=== PATIENT | male | born 1940 | race Caucasian/White ===

== ENCOUNTER 2022-05-13 16:32 | Emergency (ER) | payer OTHER ==
--- NOTE | 2022-05-13 18:48 | RAD REPORT ---
EXAM DESCRIPTION: RAD - Chest Single View - 05/13/2022 6:27 pm CLINICAL HISTORY: COUGH COMPARISON: Chest Pa And Lat (2 Views) dated 02/28/2021 FINDINGS: Lines: None. Lungs: Increased coarsened pulmonary interstitium which is widespread bilaterally. Pleural: No significant pleural effusions or pneumothorax. Cardiac: The heart size is within normal limits. Mediastinum: Within normal limits. Bones: No acute fractures. Other: None IMPRESSION: Coarsening of the interstitium with irregular bilateral airspace disease concerning for multifocal pneumonia.
[2022-05-13 19:46] LABS: SARS-COV-2 RT PCR NEGATIVE (NEGATIVE)
[2022-05-13 19:46] LABS: Absolute Lymphocytes (CBC) 1.6 K/uL (0.7-4.9); Hematocrit 47.1 % (39.6-49.0); Lymphocytes % 12.3 % (15.3-44.8); MCV 91.5 fL (80-100); MPV 9.5 fL (7.6-11.3); RBC Red Blood Cell Count 5.15 M/uL (4.33-5.43)
[2022-05-13 19:47] LABS: Protime INR 1.13
[2022-05-13] MEDS ORDERED: NA CHLORIDE 0.9% 500 ML ONE ×2 (20:02→21:22)
[2022-05-13 20:07] LABS: Albumin 3.6 g/dL (3.4-5.0); Bilirubin Direct 0.2 mg/dL (0-0.2); Bilirubin Total 0.7 mg/dL (0.2-1.0); Magnesium 2.7 mg/dL (1.6-2.4); Potassium 3.6 mmol/L (3.5-5.1); Protein, Total 8.8 g/dL (6.4-8.2)
--- NOTE | 2022-05-13 20:58 | RAD REPORT ---
EXAM DESCRIPTION: CT - Head Brain Wo Cont - 05/13/2022 8:37 pm CLINICAL HISTORY: weakness COMPARISON: No comparisons TECHNIQUE: All CT scans are performed using dose optimization technique as appropriate and may inclu de automated exposure control or mA/KV adjustment according to patient size. FINDINGS: No intracranial hemorrhage, hydrocephalus or extra-axial fluid collection.No areas of brai n edema or evidence of midline shift. Age advanced cerebral atrophy. Remote left parietooccipital lob e infarct. The paranasal sinuses and mastoids are clear. The calvarium is intact. IMPRESSION: No acute intracranial abnormality. Remote left parietooccipital lobe.
--- NOTE | 2022-05-13 21:20 | RAD REPORT ---
EXAM DESCRIPTION: CTChest Abdomen Pelvis W Cont - 05/13/2022 8:45 pm CLINICAL HISTORY: shortness of breath, weight loss COMPARISON: Chest Single View dated 05/13/2022 TECHNIQUE: CT of the chest, abdomen, and pelvis was performed with IV contrast. All CT scans are performed using dose optimization technique as appropriate and may include automated exposure control or mA/KV adjustment according to patient size. FINDINGS: Thorax: Chest Wall: Subcutaneous emphysema at the base of the neck. Lungs: Background of pulmonary fibrosis. Subpleural reticulation and nodular ground-glass opacities p resent bilaterally. Pleura: Tiny pneumothoraces suspected bilaterally. Alternately, this could represent extrapleural air simulating the pneumothoraces. Naya/Mediastinum: Enlarged subcarinal lymph node measuring 10 millimeters . Pneumomediastinum. Aorta/Pulmonary Arteries: Unremarkable Heart: Normal size. Abdomen/Pelvis: Liver: No acute abnormality or suspicious lesions. Biliary: No biliary ductal dilatation. Stomach: No significant focal abnormality. Duodenum: No significant focal abnormality. Pancreas: Pancreatic atrophy Spleen: No significant abnormality. Adrenal: No suspicious lesions. Kidney/ureter: No hydronephrosis. No renal calculi. Retroperitoneum: No retroperitoneal adenopathy. Vascular: No aneurysm. Atherosclerosis. Bowel: No significant focal abnormality. Peritoneum: No ascites or free air. Bladder: Grossly unremarkable. Reproductive: No adnexal masses. Bones: T2, T8, and L1 compression fractures. The T2 and T8 compression fractures may be pathologic. Other: n/a IMPRESSION: 1. Extensive pneumomediastinum and probably trace bilateral pneumothoraces. Discussed wi C Page by Dr. Renner. The exact source of the of the pneumomediastinum is unclear. It could be second katarzyna to esophageal source. 2. Probably subacute or chronic T2 and T8 compression fractures that may be pathologic. MRI could bet ter assess. 3. Pulmonary fibrosis that may reflect a usual interstitial pneumonia. Subpleural subpleural ground-g lass opacities and nodularity could reflect exacerbation or may be chronic. Follow up imaging could b e obtained to reassess.
[2022-05-13] MEDS ORDERED: VANCOMYCIN 1 GM/VIAL ONE (21:21)
[2022-05-13] MEDS ORDERED: CEFTRIAXONE 1000 MG/VIAL ONE (21:22)
[2022-05-13] MEDS ORDERED: NA CHLORIDE 0.9% 100 ML IV ONE ×2 (21:22→21:41)
[2022-05-13] MEDS ORDERED: PIPERACIL/TAZO 3.375 GM VIAL IV ONE (21:22)
[2022-05-13] MEDS ORDERED: NA CHLORIDE 0.9% 50 ML IV ONE (21:22)
[2022-05-13] MEDS ORDERED: AZITHROMYCIN 500 MG INJ IVPB ONE (21:22)
[2022-05-13] MEDS ORDERED: NA CHLORIDE 0.9% 1,000 ML ONE (21:23)
--- NOTE | 2022-05-13 21:41 | EDPHYS ---
Physician Documentation [facility] Name: Gonzalo Burgess Age: 81 yrs Sex: Male : 1940 Arrival Date: 05/13/2022 Time: 16:50 Bed 2 Private MD: ED Physician Chris Mcfarlane HPI: 05/13 17:35 This 81 yrs old Male presents to ER via Wheelchair with complaints of General Weakness. cp 17:35 The patient's problem is reported as weakness, that is generalized. Onset: The cp symptoms/episode began/occurred 3 week(s) ago. Duration: The episode is continuous. Associated signs and symptoms: Pertinent positives: diarrhea, shortness of breath, Pertinent negatives: abdominal pain, chest pain, confusion. Historical: - Allergies: 17:16 No Known Allergies; ld1 - Home Meds: 17:16 cyclobenzaprine 10 mg Oral tab 1 tab once daily [Active]; simvistatin [Active]; ld1 - PMHx: 17:16 Hypertensive disorder; Hypothyroidism; Depressive disorder; ld1 - Immunization history:: Adult Immunizations up to date, Client reports receiving the 2nd dose of the Covid vaccine. - Social history:: Smoking status: Patient denies any tobacco usage or history of. Patient/guardian denies using alcohol. ROS: 17:40 Constitutional: Positive for poor PO intake, Negative for body aches, fever. cp 17:40 Eyes: Negative for injury, pain, redness, and discharge. cp 17:40 ENT: Negative for drainage from ear(s), ear pain, sore throat, difficulty swallowing, difficulty handling secretions. 17:40 Cardiovascular: Negative for chest pain, edema. 17:40 Respiratory: Positive for shortness of breath, at rest. Negative for cough, wheezing. 17:40 Abdomen/GI: Positive for diarrhea, Negative for abdominal pain, vomiting, constipation, black/tarry stool, rectal bleeding. 17:40 : Negative for hematuria, flank pain, burning with urination. 17:40 Skin: Negative for cellulitis, rash. 17:40 Neuro: Positive for weakness, Negative for altered mental status, headache. 17:40 All other systems are negative. Exam: 17:45 Constitutional: The patient appears in no acute distress, alert, awake, cp non-diaphoretic, non-toxic, well developed, frail, uncomfortable. 17:45 Head/Face: Normocephalic, atraumatic. cp 17:45 Eyes: Periorbital structures: appear normal, Pupils: equal, round, and reactive to light and accomodation, Extraocular movements: intact throughout, Conjunctiva: normal, no exudate, no injection, Sclera: no appreciated abnormality, Lids and lashes: appear normal, bilaterally. 17:45 ENT: External ear(s): are unremarkable, Nose: is normal, Mouth: Lips: dry, Oral mucosa: dry, Posterior pharynx: Airway: no evidence of obstruction, patent, swelling, is not appreciated, erythema, is not appreciated, exudate, is not appreciated. 17:45 Neck: ROM/movement: is normal, is supple, without pain, no range of motions limitations, no meningismus. 17:45 Chest/axilla: Inspection: normal, Palpation: is normal, no crepitus, no tenderness. 17:45 Cardiovascular: Rate: tachycardic, Rhythm: regular, Edema: is not appreciated, JVD: is not appreciated. 17:45 Respiratory: the patient does not display signs of respiratory distress, Respirations: shallow respirations, tachypnea, Breath sounds: decreased breath sounds, that are mild, throughout, stridor, is not appreciated, wheezing: is not appreciated. 17:45 Abdomen/GI: Inspection: abdomen appears normal, Bowel sounds: active, all quadrants, Palpation: soft, mild abdominal tenderness, in all quadrants. 17:45 Back: CVA tenderness, is absent. 17:45 Skin: cellulitis, is not appreciated, no rash present. 17:45 Neuro: Orientation: no acute changes, per family, Mentation: able to follow commands, slow to respond, Motor: moves all fours, general weakness with no focal deficits. 19:10 ECG was reviewed by the Attending Physician. cp 21:15 Radiologist reports: no acute intracranial injuries cp Vital Signs: 17:08 BP 83 / 62; Pulse 124; Resp 20; Temp 97.0(A); Pulse Ox 91% on R/A; Weight 41.73 kg; ld1 Height 5 ft. 9 in. (175.26 cm); Pain 0/10; 17:19 BP 97 / 78; Pulse Ox 100% on R/A; ld1 18:50 Pulse 120; Resp 20; ll1 19:11 BP 111 / 76; ll1 21:30 BP 92 / 78; Pulse 118; Resp 13; Pulse Ox 97% on R/A; ll3 22:32 BP 149 / 83; Pulse 115; Resp 13; Pulse Ox 98% on R/A; ll3 05/14 00:09 BP 90 / 59; Pulse 95; Resp 14; Pulse Ox 98% on R/A; ll3 01:40 BP 105 / 66; Pulse 95; Resp 12; Pulse Ox 97% on R/A; ll3 02:52 BP 108 / 69; Pulse 88; Resp 14; Pulse Ox 99% on R/A; ll3 05/13 17:08 Body Mass Index 13.59 (41.73 kg, 175.26 cm) ld1 MDM: 05/13 17:22 Patient medically screened. 20:14 Data reviewed: vital signs, nurses notes, lab test result(s), radiologic studies, plain cp films. ED course: Patient qualifies for Septic Shock. A) source of infection is pneumonia, B) SIRS criteria: HR of 120, WBC of >13, C) lactate 6.3. 23:00 Post IV fluid administration reassessment for Sepsis: Client prescribed 30 mL/kg IVF. Sepsis focused reassessment complete. Current vital signs reviewed: Yes. 05/14 03:00 Physician consultation: was contacted at 00:55, regarding regarding transfer, to [facility]. patient's condition, accepting physician will be DR Smalls. 05/13 17:29 Order name: Basic Metabolic Panel; Complete Time: 20:08 05/13 20:08 Interpretation: Normal except: ANION GAP 18.6; GLUC 175; BUN 28; CRE 1.47; GFR 48. 05/13 17:29 Order name: CBC with Diff; Complete Time: 20:08 05/13 20:08 Interpretation: Normal except: WBC 13.10; PLT 121; RDW 15.4; LYM% 12.3; MN% 18.0; NEUT cp A 9.1; MNA 2.4. 05/13 17:29 Order name: LFT's; Complete Time: 20:08 05/13 21:13 Interpretation: Normal except: TP 8.8; GLOB 5.2; A/G 0.7. 05/13 17:29 Order name: Magnesium; Complete Time: 20:08 05/13 17:29 Order name: NT PRO-BNP; Complete Time: 20:08 05/13 20:09 Interpretation: Abnormal: NT PRO-BNP 1145. 12 17:29 Order name: PT-INR; Complete Time: 20:08 05/13 17:29 Order name: Troponin HS; Complete Time: 20:08 05/13 17:29 Order name: Blood Culture Adult (2) 05/13 17:29 Order name: Urine Microscopic Only; Complete Time: 01:30 05/13 17:29 Order name: Lactate w/ 2H reflex if indic.; Complete Time: 20:08 05/13 20:09 Interpretation: Abnormal: LAC 6.3. 05/13 17:29 Order name: Procalcitonin; Complete Time: 21:13 05/13 21:13 Interpretation: Reviewed. 05/13 17:29 Order name: COVID-19/FLU A+B; Complete Time: 20:08 05/14 00:04 Order name: Lactate Sepsis 2 HR Follow-up; Complete Time: 01:30 EDMS 05/14 00:22 Order name: Urine Dipstick-Ancillary; Complete Time: 01:30 EDMS 05/14 01:49 Interpretation: Normal except: UKET 1+; UBLD 1+; UPROT 2+. 05/13 17:29 Order name: XRAY Chest (1 view); Complete Time: 19:04 05/13 19:05 Interpretation: Report review. 05/13 17:29 Order name: EKG; Complete Time: 17:29 05/13 17:29 Order name: Cardiac monitoring; Complete Time: 18:47 05/13 17:29 Order name: EKG - Nurse/Tech; Complete Time: 18:47 05/13 17:29 Order name: IV Saline Lock; Complete Time: 21:14 05/13 20:13 Order name: CT Head Brain wo Cont; Complete Time: 21:13 05/13 20:13 Order name: CT Chest, Abdomen, Pelvis - W/Contrast; Complete Time: 21:22 05/13 17:29 Order name: Labs collected and sent; Complete Time: 21:14 05/13 17:29 Order name: O2 Per Protocol; Complete Time: 18:26 cp 05/13 17:29 Order name: O2 Sat Monitoring; Complete Time: 18:26 cp 05/13 17:29 Order name: Urine Dipstick-Ancillary (obtain specimen); Complete Time: 00:22 cp 05/13 20:13 Order name: Juan; Complete Time: 22:05 cp EC/12 19:10 Rate is 120 beats/min. Rhythm is regular. MD interval is normal. QRS interval is cp normal. QT interval is normal. Interpreted by me. Reviewed by me. Administered Medications: 20:05 Drug: NS 0.9% 500 ml Route: IV; Rate: bolus; Site: right upper arm; jb4 23:32 Follow up: Response: No adverse reaction; IV Status: Completed infusion; IV Intake: ll3 500ml 21:28 Drug: NS 0.9% (30 ml/kg) 30 ml/kg Route: IV; Rate: bolus; Site: right antecubital; ll3 23:33 Follow up: Response: No adverse reaction; IV Status: Completed infusion; IV Intake: ll3 1250ml 21:36 Drug: Rocephin (cefTRIAXone) 1 grams Route: IV; Rate: calculated rate; Site: right ll3 antecubital; 23:31 Follow up: Response: No adverse reaction; IV Status: Completed infusion; IV Intake: 10qinf0 21:59 Drug: Zithromax (azithromycin) 10 mg/kg Route: IVPB; Rate: calculated rate; Site: right ll3 antecubital; 23:32 Follow up: Response: No adverse reaction; IV Status: Completed infusion; IV Intake: ll3 100ml 22:21 Drug: fentaNYL (PF) 25 mcg Route: IVP; Site: right antecubital; ll3 23:32 Follow up: Response: No adverse reaction ll3 22:30 Drug: Zosyn (piperacillin-tazobactam) 3.375 grams Route: IVPB; Infused Over: 60 mins; ll3 Site: right antecubital; 23:32 Follow up: Response: No adverse reaction; IV Status: Completed infusion; IV Intake: ll3 100ml 23:31 Drug: vancoMYCIN 20 mg/kg Route: IVPB; Site: right antecubital; ll3 23:31 Drug: Ativan (LORazepam) 0.5 mg Route: IVP; Site: right antecubital; ll3 05/14 02:27 Drug: NS 0.9% 1000 ml Route: IV; Rate: 75 ml/hr; Site: right antecubital; ll3 Disposition: 04:47 Co-signature as Attending Physician, Chris Mcfarlane MD. rn Disposition Summary: 05/13/22 21:40 Transfer Ordered Reason: Higher level of care cp Condition: Stable cp Problem: new cp Symptoms: have improved cp Transfer Location: [facility](05/14/22 03:07) cp Accepting Physician: DR Smalls(05/14/22 03:52) ll3 Diagnosis - Severe sepsis with septic shock cp - Pneumomediastinum cp - Pneumonia in diseases classified elsewhere cp Discharge Instructions: - Discharge Summary Sheet ll1 Forms: - Medication Reconciliation Form cp - SBAR form ll1 Critical care time excluding procedures: 03:00 Critical care time: Bedside Care: 5 minutes, Consultation: 25 minutes, Family cp Intervention: 10 minutes. Total time: 40 minutes Signatures: Dispatcher [employer] EDChris Payan MD MD rn Page, Corey, PA PA cp Tono Leavitt RN RN jb4 Maddy Gonzalez RN RN ld1 Svitlana Patel RN RN ll3 Corrections: (The following items were deleted from the chart) 05/13 23:34 21:40 Doctor cp cp 05/14 02:51 05/13 21:40 Other Acute Care Facility cp cp 05/14 02:51 05/13 23:34 Doctor cp cp 05/14 03:07 02:51 DR Lara Bergman cp cp 03:07 02:51 [facility] cp cp 03:52 03:07 DR Smalls cp ll3
--- NOTE | 2022-05-13 21:41 | ER ---
Nurse's Notes [facility] Name: Gonzalo Burgess Age: 81 yrs Sex: Male : 1940 Arrival Date: 05/13/2022 Time: 16:50 Bed 2 Private MD: Diagnosis: Severe sepsis with septic shock;Pneumomediastinum;Pneumonia in diseases classified elsewhere Presentation: 05/13 17:08 Chief complaint: Patient states: Toned out pt home for difficulty breathing. Pt denies ld1 pain. Weakness progressing X 2-3 weeks. Weight loss noted by family over the past 3-4 months. Coronavirus screen: At this time, the client does not indicate any symptoms associated with coronavirus-19. Ebola Screen: No symptoms or risks identified at this time. Initial Sepsis Screen: Does the patient meet any 2 criteria? No. Patient's initial sepsis screen is negative. Does the patient have a suspected source of infection? No. Patient's initial sepsis screen is negative. Risk Assessment: Do you want to hurt yourself or someone else? Patient reports no desire to harm self or others. Onset of symptoms was May 13, 2022. 17:08 Method Of Arrival: Wheelchair ld1 17:08 Acuity: SCOTT 2 ld1 Triage Assessment: 17:16 General: Appears in no apparent distress. uncomfortable, Behavior is calm, cooperative, ld1 appropriate for age. Pain: Denies pain. EENT: No signs and/or symptoms were reported regarding the EENT system. Neuro: Level of Consciousness is awake, alert, obeys commands, Oriented to person, place, time, situation, Appropriate for age. Cardiovascular: Capillary refill < 3 seconds Patient's skin is warm and dry. Respiratory: Airway is patent Respiratory effort is even, unlabored. GI: Abdomen is flat, non-distended. : No signs and/or symptoms were reported regarding the genitourinary system. Derm: No signs and/or symptoms reported regarding the dermatologic system. Musculoskeletal: No signs and/or symptoms reported regarding the musculoskeletal system. Historical: - Allergies: 17:16 No Known Allergies; ld1 - Home Meds: 17:16 cyclobenzaprine 10 mg Oral tab 1 tab once daily [Active]; simvistatin [Active]; ld1 - PMHx: 17:16 Hypertensive disorder; Hypothyroidism; Depressive disorder; ld1 - Immunization history:: Adult Immunizations up to date, Client reports receiving the 2nd dose of the Covid vaccine. - Social history:: Smoking status: Patient denies any tobacco usage or history of. Patient/guardian denies using alcohol. Screenin:57 Abuse screen: Denies threats or abuse. Nutritional screening: Had unintentional weight ll1 loss of 10 pounds or more. Intervention for positive screen: ED Physician notified. Tuberculosis screening: No symptoms or risk factors identified. Fall Risk IV access (20 points). Gait- Weak (10 pts.). Mental Status- Overestimates/Forgets Limitations (15 pts.). Total Marquez Fall Scale indicates High Risk Score (45 or more points). Fall prevention measures have been instituted. Side Rails Up X 2 Placed Close to Nursing Station Frequent Obs/Assessments Occuring Family Present and informed to notify staff if the need to leave the bedside As available patient and family educated on Fall Prevention Program and Strategies. Assessment: 18:26 General: Appears uncomfortable, ill, Behavior is cooperative, appropriate for age, ll1 anxious. Pain: Denies pain. Neuro: Reports weakness. Respiratory: Reports shortness of breath at rest. GI: Reports. Musculoskeletal: Reports weakness in generalized. 19:08 Reassessment: No changes from previously documented assessment. Patient and/or family ll1 updated on plan of care and expected duration. Pain level reassessed. 20:00 Reassessment: No changes from previously documented assessment. Patient and/or family ll3 updated on plan of care and expected duration. Pain level reassessed. 22:00 Reassessment: No changes from previously documented assessment. Patient and/or family ll3 updated on plan of care and expected duration. Pain level reassessed. 05/14 00:13 Reassessment: No changes from previously documented assessment. Patient and/or family ll3 updated on plan of care and expected duration. Pain level reassessed. 02:52 Reassessment: No changes from previously documented assessment. Patient and/or family ll3 updated on plan of care and expected duration. Pain level reassessed. Vital Signs: 05/13 17:08 BP 83 / 62; Pulse 124; Resp 20; Temp 97.0(A); Pulse Ox 91% on R/A; Weight 41.73 kg; ld1 Height 5 ft. 9 in. (175.26 cm); Pain 0/10; 17:19 BP 97 / 78; Pulse Ox 100% on R/A; ld1 18:50 Pulse 120; Resp 20; ll1 19:11 BP 111 / 76; ll1 21:30 BP 92 / 78; Pulse 118; Resp 13; Pulse Ox 97% on R/A; ll3 22:32 BP 149 / 83; Pulse 115; Resp 13; Pulse Ox 98% on R/A; ll3 05/14 00:09 BP 90 / 59; Pulse 95; Resp 14; Pulse Ox 98% on R/A; ll3 01:40 BP 105 / 66; Pulse 95; Resp 12; Pulse Ox 97% on R/A; ll3 02:52 BP 108 / 69; Pulse 88; Resp 14; Pulse Ox 99% on R/A; ll3 05/13 17:08 Body Mass Index 13.59 (41.73 kg, 175.26 cm) ld1 ED Course: 05/13 16:50 Patient arrived in ED. iw 17:06 Ashu Edward PA is PHCP. cp 17:06 Twin Earl DO is Attending Physician. cp 17:16 Triage completed. ld1 17:16 Arm band placed on right wrist. ld1 18:26 Joanna Dimas, TAY is Primary Nurse. ll1 18:26 Patient placed in an exam room, on a stretcher. ll1 18:29 XRAY Chest (1 view) In Process Unspecified. EDMS 18:47 COVID-19/FLU A+B Sent. ll1 18:52 Missed attempt(s): 22 gauge in right forearm. x 2. Bleeding controlled, band aid ll1 applied, catheter tip intact. 18:57 Patient has correct armband on for positive identification. Bed in low position. Call ll1 light in reach. Side rails up X2. Client placed on continuous cardiac and pulse oximetry monitoring. NIBP monitoring applied. awake overnight monitor on. 19:08 EKG done. ll1 19:09 Primary Nurse role handed off by Joanna Dimas, RN mw2 19:55 Second set of blood cultures drawn by wy. Accessed peripheral vein via ultrasound, bb utilizing dynamic ultrasound technique Powerglide midline 20g 8cm to right upper arm using hospital protocol with good blood return and flushes easily pt tolerated well. 20:07 Chris Mcfarlane MD is Attending Physician. cp 20:07 Notified ED physician of a critical lab result(s). lactate of 6.2 Dr Mcfarlane notified. bb 20:38 CT Head Brain wo Cont In Process Unspecified. EDMS 20:46 CT Chest, Abdomen, Pelvis - W/Contrast In Process Unspecified. EDMS 21:53 Initiated a transfer with Delilah from [facility] Transfer [place]. mw2 21:57 [facility] Campuses denied due to capacity. mw2 22:04 initiated a transfer with Claude from [facility] [place]. mw2 22:05 Martinez cath inserted, using sterile technique, 16 Fr., by wy, balloon inflated, to ll3 gravity drainage, clamped. 22:17 initiated a transfer with [facility] Transfer Center. mw2 22:28 [facility] denied due to capacity. mw2 22:32 [facility] [place] denied due to capacity. mw2 22:36 initiated a transfer with Christina from [facility] Transfer [place]. mw2 22:53 initiated a transfer with Rama from [facility] Transfer [place]. mw2 23:00 All [facility] campuses denied due to ICU capacity. mw2 23:18 initiated a transfer with [facility]. mw2 23:21 faxed over patient clinicals to the [facility]. mw2 12 00:12 Fax machine will not fax over patient clinicals it said ERROR. I contacted Fatoumata from [facility] the [facility] Transfer [facility] to inform her. I emailed the patient chart to the [facility]. 00:22 Urine Microscopic Only Sent. ll3 01:25 initiated a transfer with Killian from [facility]. mw2 01:44 Connected Ashu VEGA with the Transit Manager from [facility]. mw2 02:37 Connected Ashu VEGA with the Hospitalist from [facility]. mw2 03:04 administrative approval given by Fatoumata Rosario/ patient has been accepted to [address] to the ER/ Dr. Smalls accepted the patient in transfer/report to be called to [phone]. 03:51 No provider procedures requiring assistance completed. Patient transferred, IV remains ll3 in place. Administered Medications: 05/13 20:05 Drug: NS 0.9% 500 ml Route: IV; Rate: bolus; Site: right upper arm; jb4 23:32 Follow up: Response: No adverse reaction; IV Status: Completed infusion; IV Intake: ll3 500ml 21:28 Drug: NS 0.9% (30 ml/kg) 30 ml/kg Route: IV; Rate: bolus; Site: right antecubital; ll3 23:33 Follow up: Response: No adverse reaction; IV Status: Completed infusion; IV Intake: ll3 1250ml 21:36 Drug: Rocephin (cefTRIAXone) 1 grams Route: IV; Rate: calculated rate; Site: right ll3 antecubital; 23:31 Follow up: Response: No adverse reaction; IV Status: Completed infusion; IV Intake: 74ohmm8 21:59 Drug: Zithromax (azithromycin) 10 mg/kg Route: IVPB; Rate: calculated rate; Site: right ll3 antecubital; 23:32 Follow up: Response: No adverse reaction; IV Status: Completed infusion; IV Intake: ll3 100ml 22:21 Drug: fentaNYL (PF) 25 mcg Route: IVP; Site: right antecubital; ll3 23:32 Follow up: Response: No adverse reaction ll3 22:30 Drug: Zosyn (piperacillin-tazobactam) 3.375 grams Route: IVPB; Infused Over: 60 mins; ll3 Site: right antecubital; 23:32 Follow up: Response: No adverse reaction; IV Status: Completed infusion; IV Intake: ll3 100ml 23:31 Drug: vancoMYCIN 20 mg/kg Route: IVPB; Site: right antecubital; ll3 23:31 Drug: Ativan (LORazepam) 0.5 mg Route: IVP; Site: right antecubital; ll3 05/14 02:27 Drug: NS 0.9% 1000 ml Route: IV; Rate: 75 ml/hr; Site: right antecubital; ll3 Medication: 05/13 18:57 VIS not applicable for this client. ll1 Intake: 23:31 IV: 50ml; Total: 50ml. ll3 23:32 IV: 100ml; Total: 150ml. ll3 23:32 IV: 100ml; Total: 250ml. ll3 23:32 IV: 500ml; Total: 750ml. ll3 23:33 IV: 1250ml; Total: 2000ml. ll3 Outcome: 21:40 ER care complete, transfer ordered by MD. vela 05/14 03:51 Transferred by ground EMS to [facility] Transfer form completed. ll3 X-rays sent w/ patient. Condition: stable Instructed on the need for transfer, Demonstrated understanding of instructions. 03:52 Patient left the ED. ll3 Signatures: Dispatcher [employer] EDEvita Chow RN RN Shanti Garcia RN Ashu Herring PA PA cp Tono Leavitt RN RN jb4 George Prado mw2 Joanna Dimas RN RN ll1 Maddy Gonzalez RN RN ld1 Svitlana Patel RN RN ll3 Corrections: (The following items were deleted from the chart) 05/13 22:32 21:30 BP 149 / 83; Pulse 115bpm; Resp 13bpm; Pulse Ox 98% RA; ll3 ll3
[2022-05-13] MEDS ORDERED: FENTANYL CITR 100 MCG/2 ML ONE (22:20)
[2022-05-13] MEDS ORDERED: LORazepam 2 MG/ML VIAL ONE (23:18)
[2022-05-14 00:22] LABS: Urine Blood 1+ (Negative); Urine Glucose Negative (Negative); Urine Protein 2+ (Negative); Urine Specific Gravity 1.025 (1.005-1.030); Urine pH 5.5 (5.0-7.0)
[2022-05-14 00:51] LABS: Urine Mucus 1+ /HPF (None Seen)
[2022-05-14] MEDS ORDERED: NA CHLORIDE 0.9% 1,000 ML ONE (02:24)
[2022-05-14 03:58] VITALS: TEMP 97
[2022-05-14 04:07] VITALS: BP 108/69; O2SAT 99
--- NOTE | 2022-05-14 14:36 | EKG ---
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
== END 2022-05-14 03:52 ==
LOC: ER 16:32
DX: J18.9 Pneumonia, unspecified organism (principal); R65.21 Severe sepsis with septic shock; J98.2 Interstitial emphysema; I10 Essential (primary) hypertension; F32.A Depression, unspecified; Z20.822 Contact with and (suspected) exposure to COVID-19
CPT/HCPCS: 93005; 87040 ×2; 85025; 80048; 36415; 83735; 85610; 80076; 83605 ×2; 84484; 84145; 83880; 0240U; 70450; 71260; 74177; 71045; Q9967; J2543; J0456; J3010; J3370; J7050; J7040; J7030 ×2; 51702; 81003; 81015; 96361; 96365; 96367; 96375; 99285